=== PATIENT | female | born 1950 | race Caucasian/White ===

== ENCOUNTER 2016-06-30 23:05 | Emergency (ER) | payer MEDICARE, OTHER ==
[~2016-06-30 23:05] MED LIST: ALBUTEROL17 GM INH; ALPRAZOLAM PO; AMITRYPTYLINE PO; AMOXICILLIN875 MG PO; ASPIRIN EC81 M1 PO; ATIVAN PO; ATROVENT HFA12.9 G1 IH; ATROVENT NEB; AZITHROMYCIN250 MG PO; B12 COMPLEX; BACTRIM DS TABL1 TA1 PO; BAYER CHEWABLE81 MG PO; BENADRYL25 M1 PO; BENZONATATE PO; BUSPAR PO; CARDIZEM CD240 M2 PO; CHLORTHALIDONE25 MG PO; CLEOCIN HCL300 M1 PO; CLEOCIN150 M1 PO; DICYCLOMINE HCL20 MG PO; FAMOTIDINE PO; FLEXERIL PO; FLOVENT DISKU100 MCG IH; FLOVENT HFA10.6 GM IH; FLOVENT7.9 GM INH; GLUCOPHAGE500 MG PO; HCTZ PO; HYCODAN60 ML 5MG/ PO; HYDRALAZINE HCL50 MG PO; HYDROCODON-ACE1 EAC7 PO; HYDROXYZINE HCL25 M1 PO; IPRATR-ALBUTEROL3 ML IH; KEFLEX500 M1 PO; LASIX PO; LASIX20 MG PO; LIDOCARE1 EACH TOP; LIPITOR PO; LISINOPRIL PO; LOMOTIL TABLET1 TAB PO; LORAZEPAM1 MG PO; METFORMIN PO; METOPROLOL TAR25 MG PO; METOPROLOL TART25 MG PO; NASONEX17 GM; NEURONTIN PO; NEURONTIN800 MG PO; NEXIUM PO; NEXIUM20 MG PO; NORVASC PO; PREDNISONE PO; PRILOSEC20 MG PO; ROBINUL1 MG PO; SYMBICORT; SYMBICORT INH; SYNTHROID25 MCG PO; SYNTHROID75 MCG PO; TOPROL XL 50 MG50 MG PO; TOPROL XL PO; TOPROL XL50 MG PO; VALTREX PO; ZITHROMAX PO; ZOFRAN ODT4 MG PO; ZOFRAN PO; ZYRTEC PO
[2016-06-30] MEDS ORDERED: AZITHROMYCIN250 MG PO (23:28)
== END 2016-06-30 23:30 | disposition home or self-care (01) ==
LOC: SED 23:05
DX: J01.00 Acute maxillary sinusitis, unspecified (principal); I25.10 Atherosclerotic heart disease of native coronary artery without angina pectoris; I10 Essential (primary) hypertension; K21.9 Gastro-esophageal reflux disease without esophagitis; Z88.8 Allergy status to other drugs, medicaments and biological substances; Z79.899 Other long term (current) drug therapy
CPT/HCPCS: 99282